=== PATIENT | female | born 1960 | race Caucasian/White ===

== ENCOUNTER 2024-03-19 14:10 | Outpatient (CLI) | payer OTHER, SELFPAY | END 2024-03-19 14:11 | disposition home or self-care (01) | LOC: NFLDREF 03-23 06:43 | PROVIDERS: Visit Provider Physician Assistant | DX: N12 Tubulo-interstitial nephritis, not specified as acute or chronic (principal); B96.4 Proteus (mirabilis) (morganii) as the cause of diseases classified elsewhere | CPT/HCPCS: 87086; 87186 ==